=== PATIENT | female | born 2000 | race American Indian/Alaskan Native ===

== ENCOUNTER 2021-04-01 20:52 | Emergency (ER) | payer MEDICAID ==
[2021-04-01 23:32] VITALS: BP 113/67
--- NOTE | 2021-04-02 00:29 | Emergency Department Report ---
- General Chief complaint: Skin/Abscess/Foreign Body Stated complaint: ARMPITS BLEEDING/ITCHY/DRAINING Time Seen by Provider: 04/02/21 00:19 Source: patient Mode of arrival: Ambulatory Limitations: No Limitations - History of Present Illness Initial comments: Chief complaint: Rash in my arms HPI: This is a healthy 21-year-old female with history of eczema who presents with irritation and drainage under both arms for the past several days. Patient has itching and irritation. No previous rash in the area. MD complaint: rash -: Gradual, days(s) (Several days) Location: LUE, RUE Severity: moderate Quality: burning Consistency: constant Improves with: none Worsens with: none Context: none Associated symptoms: other (Drainage) - Related Data Previous Rx's Medication Instructions Recorded Last Taken Type Hydrocortisone [Hydrocortisone 1 applic TP BID 14 Days #1 04/02/21 Unknown Rx 2.5% OINT] oint...g. Sulfamethoxazole/Trimethoprim 1 each PO BID 7 Days #14 tablet 04/02/21 Unknown Rx [Bactrim DS TAB] cephALEXin [Keflex] 500 mg PO Q6HR 7 Days #28 capsule 04/02/21 Unknown Rx Allergies Allergy/AdvReac Type Severity Reaction Status Date / Time No Known Allergies Allergy Unverified 04/01/21 21:40 Abscess [facility] Chief Complaint: Skin/Abscess/Foreign Body Stated Complaint: ARMPITS BLEEDING/ITCHY/DRAINING Time Seen by Provider: 04/02/21 00:19 Home Medications: Previous Rx's Medication Instructions Recorded Last Taken Type Hydrocortisone [Hydrocortisone 1 applic TP BID 14 Days #1 04/02/21 Unknown Rx 2.5% OINT] oint...g. Sulfamethoxazole/Trimethoprim 1 each PO BID 7 Days #14 tablet 04/02/21 Unknown Rx [Bactrim DS TAB] cephALEXin [Keflex] 500 mg PO Q6HR 7 Days #28 capsule 04/02/21 Unknown Rx Allergies/Adverse Reactions: Allergies Allergy/AdvReac Type Severity Reaction Status Date / Time No Known Allergies Allergy Unverified 04/01/21 21:40 ED Review of Systems ROS: Stated complaint: ARMPITS BLEEDING/ITCHY/DRAINING Other details as noted in HPI ED Past Medical Hx - Past Medical History Previous Medical History?: Yes Hx Asthma: Yes Additional medical history: eczema - Surgical History Past Surgical History?: No - Social History Smoking Status: Current Every Day Smoker Substance Use Type: Alcohol, Marijuana - Medications Home Medications: Home Medications Medication Instructions Recorded Confirmed Last Taken Type Hydrocortisone [Hydrocortisone 1 applic TP BID 14 Days #1 04/02/21 Unknown Rx 2.5% OINT] oint...g. Sulfamethoxazole/Trimethoprim 1 each PO BID 7 Days #14 tablet 04/02/21 Unknown Rx [Bactrim DS TAB] cephALEXin [Keflex] 500 mg PO Q6HR 7 Days #28 capsule 04/02/21 Unknown Rx ED Physical Exam - General Limitations: No Limitations General appearance: alert, in no apparent distress - Head Head exam: Present: atraumatic - ENT ENT exam: Present: normal orophraynx - Neurological Exam Neurological exam: Present: alert, oriented X3 - Skin Skin exam: Present: other (Both axillary affected: Hyperpigmented edematous skin with pustules ulceration) ED Course Vital Signs 04/01/21 21:43 Temperature 98.6 F Pulse Rate 74 Respiratory 18 Rate Blood Pressure 113/67 O2 Sat by Pulse 98 Oximetry ED Medical Decision Making - Medical Decision Making Differential diagnosis: Hidradenitis suppurativa, allergic contact dermatitis, folliculitis: Prescribed hydrocortisone ointment, Bactrim Keflex. Referred to final installer inspector. Critical care attestation.: If time is entered above; I have spent that time in minutes in the direct care of this critically ill patient, excluding procedure time. ED Disposition Clinical Impression: Hidradenitis suppurativa, Allergic contact dermatitis Disposition: DC- TO HOME OR SELFCARE Is pt being admited?: No Does the pt Need Aspirin: No Condition: Stable Additional Instructions: Please see a final installer inspector at your earliest convenience. Prescriptions: Sulfamethoxazole/Trimethoprim [Bactrim DS TAB] 1 each PO BID 7 Days #14 tablet Hydrocortisone [Hydrocortisone 2.5% OINT] 1 applic TP BID 14 Days #1 oint...g. cephALEXin [Keflex] 500 mg PO Q6HR 7 Days #28 capsule Referrals: HARESH SANCHEZ MD [Staff Physician] - 3-5 Days
== END 2021-04-02 01:15 | disposition home or self-care (01) ==
LOC: ED 20:52
DX: L73.2 Hidradenitis suppurativa (principal); L23.9 Allergic contact dermatitis, unspecified cause; J45.909 Unspecified asthma, uncomplicated; F17.200 Nicotine dependence, unspecified, uncomplicated; F12.90 Cannabis use, unspecified, uncomplicated; Z79.899 Other long term (current) drug therapy
CPT/HCPCS: 99281

== ENCOUNTER 2021-04-20 19:30 | Emergency (ER) | payer MEDICAID ==
--- NOTE | 2021-04-20 21:51 | Emergency Department Report ---
<DWAINE BANEGASXIN Gardner - Last Filed: 04/21/21 02:09> ED Psych HPI - General Chief Complaint: Psych Stated Complaint: SUICIDAL THOUGHTS Time Seen by Provider: 04/20/21 21:31 Source: patient, family, EMS Mode of arrival: Ambulatory Limitations: No Limitations - History of Present Illness Initial Comments: Patient is a 21-year-old female who presents emergency room with complaints of depression and suicidal ideation. Patient states she has a plan. Patient states she had a plan to stab herself or hanging herself. Patient's mother is at bedside. Patient's mother at bedside because the patient has history of MR. Patient is not currently taking any psychiatric medications. Patient states that her suicidal ideations have been going on without a plan for 1 year but recently she has been having thoughts and coming up with plans of how to kill herself. Patient denies hallucinations. Patient denies anxiety. Patient com plains of depression. Patient's mother at bedside. Patient's mother states that her daughter posted on [employer], "when I kill myself tomorrow. Please do not let the fake people come to my . You all do not care about me now and should care about me then." Mother states that after she found this post that she confronted the patient and the patient had locked herself in the room and was crying. The patient then opened up her room door and told her mom that she was trying to hang herself because she did not want to live. Mother states the patient admitted to her that she wants to . Mother states that the patient admitted to her that she has attempted suicide multiple times but all the way that she has tried have not worked. Patient denies recent travel. Patient denies recent international travel. Patient denies exposure to the novel coronavirus. Patient denies sick contacts. Patient denies fever and chills. Patient denies cough. Patient denies diarrhea. Patient denies coming in contact with anybody with symptoms of the novel coronavirus. MD Complaint: suicidal ideation, feels depressed -: Sudden, year(s) Associated Psychiatric Symptoms: depression, suicidal ideation History of same: Yes Quality: constant Improves With: none Worsens With: none Associated Symptoms: denies other symptoms. denies: confusion, headache, shortness of breath, nausea, vomiting, syncope, insomnia If Self Harm: admits thoughts of, has plan, has acted on plan - Related Data Previous Rx's Medication Instructions Recorded Last Taken Type Hydrocortisone [Hydrocortisone 1 applic TP BID 14 Days #1 04/02/21 Unknown Rx 2.5% OINT] oint...g. cephALEXin [Keflex] 500 mg PO Q6HR 7 Days #28 capsule 04/02/21 Unknown Rx Sertraline [Zoloft] 25 mg PO QDAY #30 tab 04/21/21 Unknown Rx Sulfamethoxazole/Trimethoprim 1 each PO BID 7 Days #14 tablet 04/21/21 Unknown Rx [Bactrim DS TAB] Allergies Allergy/AdvReac Type Severity Reaction Status Date / Time No Known Allergies Allergy Unverified 04/01/21 21:40 ED Review of Systems Constitutional: denies: chills, fever Eyes: denies: eye pain, eye discharge, vision change ENT: denies: ear pain, throat pain Respiratory: denies: cough, shortness of breath, wheezing Cardiovascular: denies: chest pain, palpitations Endocrine: no symptoms reported Gastrointestinal: denies: abdominal pain, nausea, diarrhea Genitourinary: denies: urgency, dysuria, discharge Musculoskeletal: denies: back pain, joint swelling, arthralgia Skin: denies: rash, lesions Neurological: denies: headache, weakness, paresthesias Psychiatric: as per HPI, depression, suicidal thoughts. denies: anxiety, auditory hallucinations, visual hallucinations, homicidal thoughts Hematological/Lymphatic: denies: easy bleeding, easy bruising ED Past Medical Hx - Past Medical History Previous Medical History?: Yes Hx Asthma: Yes Additional medical history: eczema, Mental Retardation - Surgical History Past Surgical History?: No - Family History Family history: no significant - Social History Smoking Status: Never Smoker Substance Use Type: None - Medications Home Medications: Home Medications Medication Instructions Recorded Confirmed Last Taken Type Hydrocortisone [Hydrocortisone 1 applic TP BID 14 Days #1 04/02/21 Unknown Rx 2.5% OINT] oint...g. cephALEXin [Keflex] 500 mg PO Q6HR 7 Days #28 capsule 04/02/21 Unknown Rx Sertraline [Zoloft] 25 mg PO QDAY #30 tab 04/21/21 Unknown Rx Sulfamethoxazole/Trimethoprim 1 each PO BID 7 Days #14 tablet 04/21/21 Unknown Rx [Bactrim DS TAB] ED Physical Exam - General Limitations: Other General appearance: alert, in no apparent distress - Head Head exam: Present: atraumatic, normocephalic - Eye Eye exam: Present: normal appearance - ENT ENT exam: Present: mucous membranes moist - Neck Neck exam: Present: normal inspection - Respiratory Respiratory exam: Present: normal lung sounds bilaterally. Absent: respiratory distress - Cardiovascular Cardiovascular Exam: Present: regular rate, normal rhythm. Absent: systolic murmur, diastolic murmur, rubs, gallop - GI/Abdominal GI/Abdominal exam: Present: soft, normal bowel sounds - Extremities Exam Extremities exam: Present: normal inspection - Back Exam Back exam: Present: normal inspection - Neurological Exam Neurological exam: Present: alert, oriented X3 - Psychiatric Psychiatric exam: Present: depressed, flat affect, suicidal ideation - Skin Skin exam: Present: warm, dry, intact, normal color. Absent: rash ED Course - Reevaluation(s) Reevaluation #1: Initial evaluation done. Patient's mother at bedside the entire time. Patient placed on a 1013. Mental health evaluation ordered. 04/20/21 21:51 Reevaluation #2: Patient is medically cleared. Patient remained in the ER as an ER hold and on a 1013 until the patient is cleared by our psychiatry team. Patient's final disposition will come from our psychiatry team. 04/21/21 02:09 ED Medical Decision Making - Lab Data Result diagrams: 04/20/21 22:03 04/20/21 22:03 - Medical Decision Making Patient is a 21-year-old female presents emergency room with complaints of suicidal ideation and depression. Patient has had multiple attempts over the past few weeks. Patient was brought in by her mother because the patient told her mother tonight that she wanted to and that she already tried to hang herself. Patient history per mother and patient. Patient had labs done which were essentially unremarkable except for UTI. Patient is medically cleared. Patient's final disposition will come from our psychiatry team. Patient will remain in the ER as an ER hold and a 1013 until the patient is cleared by our psychiatry team. Patient will be given a prescription for Bactrim. - Differential Diagnosis Suicidal ideation, depression ED Disposition Clinical Impression: Suicidal ideations, Suicide attempt UTI (urinary tract infection) Qualifiers: Urinary tract infection type: acute cystitis Hematuria presence: with hematuria Qualified Code(s): N30.01 - Acute cystitis with hematuria Depression Qualifiers: Depression Type: unspecified Qualified Code(s): F32.9 - Major depressive disorder, single episode, unspecified Disposition: DC-01 TO HOME OR SELFCARE Is pt being admited?: No Does the pt Need Aspirin: No Condition: Stable Instructions: Urinary Tract Infection, Adult, [id number] Additional Instructions: OUTPATIENT MENTAL HEALTH RESOURCES [facility], [facility] Sarwat Santillan MD: [address] [place] [address] [place] [address] [facility]: [facility] [address] [place] [address] [place] [address] [phone] [facility]: [facility] Healthcare: [address] [facility] [address] [facility] [place] [address] [facility] [address] [facility]: Ervin Goodman MD: [address] [facility] [address] [facility] [address] [facility]: [address] [place], [place] [id number] [phone] [place] CRISIS AND ACCESS LINE: Prescriptions: Sulfamethoxazole/Trimethoprim [Bactrim DS TAB] 1 each PO BID 7 Days #14 tablet Sertraline [Zoloft] 25 mg PO QDAY #30 tab Referrals: PRIMARY CARE, [Primary Care Provider] - 2-3 Days Time of Disposition: 02:12 <AQUILINO RAMIREZ - Last Filed: 04/21/21 13:46> ED Review of Systems ROS: Stated complaint: SUICIDAL THOUGHTS Other details as noted in HPI ED Course Vital Signs 04/20/21 04/20/21 04/20/21 20:19 21:40 21:43 Temperature 98.3 F 98.3 F Pulse Rate 83 83 Respiratory 18 20 16 Rate Blood Pressure 119/72 Blood Pressure 119/72 [Right] O2 Sat by Pulse 99 99 99 Oximetry 04/21/21 04/21/21 02:53 09:23 Temperature 98.3 F 98.9 F Pulse Rate 85 65 Respiratory 18 18 Rate Blood Pressure Blood Pressure 101/68 110/42 [Right] O2 Sat by Pulse 100 97 Oximetry ED Medical Decision Making - Lab Data Result diagrams: 04/20/21 22:03 04/20/21 22:03 - Medical Decision Making Patient has been cleared by psychiatric team for discharge. I have arranged discharge disposition. Critical care attestation.: If time is entered above; I have spent that time in minutes in the direct care of this critically ill patient, excluding procedure time.
[2021-04-20 22:31] LABS: Basophils % (Auto) 0.6 % (0.0-1.8); Eosinophils # (Auto) 0.1 K/mm3 (0.0-0.4); Eosinophils % (Auto) 2.1 % (0.0-4.3); Hematocrit 39.9 % (30.3-42.9); Hemoglobin 13.3 gm/dl (10.1-14.3); Lymphocytes # (Auto) 1.9 K/mm3 (1.2-5.4); Lymphocytes % (Auto) 32.2 % (13.4-35.0); Mean Corpuscular HGB Conc 33 % (30-34); Mean Corpuscular Volume 91 fl (79-97); Monocytes # (Auto) 0.4 K/mm3 (0.0-0.8); Monocytes % (Auto) 6.8 % (0.0-7.3); Platelet Count 166 K/mm3 (140-440); Red Blood Count 4.39 M/mm3 (3.65-5.03); Red Cell Distribution Width 13.9 % (13.2-15.2)
[2021-04-20 22:39] LABS: BUN/Creatinine Ratio 13; Blood Urea Nitrogen 10 mg/dL (7-17); Calcium 10.6 mg/dL (8.4-10.2); Hemolysis Index 23
[2021-04-20 22:44] LABS: Bilirubin,Urine NEG (Negative); Blood,Urine LG (Negative); Color,Urine Yellow (Yellow); Mucus,Urine 3+ /HPF; RBC,Urine > 182.0 /HPF (0.0-6.0)
[2021-04-20 22:51] LABS: Amphetamine Screen,Urine Negative; Benzodiazepines Screen,Urine Negative; Cannabinoid Screen,Urine Negative; Cocaine Screen,Urine Negative; Methadone Screen,Urine Negative; Opiate Screen,Urine Negative
[2021-04-21 09:25] VITALS: BP 110/42
--- NOTE | 2021-04-21 10:37 | Consultation ---
History of Present Illness - Reason for Consult Consult date: 04/21/21 Reason for consult: SI - History of Present Psychiatric Illness Per ER Note: Patient is a 21-year-old female who presents emergency room with complaints of depression and suicidal ideation. Patient states she has a plan. Patient states she had a plan to stab herself or hanging herself. Patient's mother is at bedside. Patient's mother at bedside because the patient has history of MR. Patient is not currently taking any psychiatric medications. Patient states that her suicidal ideations have been going on without a plan for 1 year but recently she has been having thoughts and coming up with plans of how to kill herself. Patient denies hallucinations. Patient denies anxiety. Patient complains of depression. Patient's mother at bedside. Patient's mother states that her daughter posted on [employer], "when I kill myself tomorrow. Please do not let the fake people come to my . You all do not care about me now and should care about me then." Mother states that after she found this post that she confronted the patient and the patient had locked herself in the room and was crying. The patient then opened up her room door and told her mom that she was trying to hang herself because she did not want to live. Mother states the patient admitted to her that she wants to . Mother states that the patient admitted to her that she has attempted suicide multiple times but all the way that she has tried have not worked. 21y/o Susan Word was evaluated today. The patient presented to the ER for posting something on [employer] saying she wanted to kill herself. During my evaluation the patient is calm, and cooperative. She is polite. She talks to me about her triggers. The patient states her family makes her feel this way when she's around them because "they transmission superintendent too much." The patient states "If I have company they don't approve of them and this makes me feel like this. The don't let my company come around." The patient denies SI/HI. She says "I only said that because I was upset. It's my family." She also says her dad is trying to come back in her life and she's not feeling that. She says he is also one of her triggers. She denies ever seeing a psychiatrist. The patient says "this is the first time she's been in a situation like this." She says "I've never been in a hospital for nothing like this." She denies hallucinations of any kind. The patient also denies any fear of endangerment for herself or anybody else. The patient also discusses her plans to go to [employer] to do nails. I spoke to mom and discussed the patient's progress and discharge plan with her. Mom says the patient is upset because she won't allow this certain boy to be in her life. Mom says she is a code clerk and doesn't feel this boy is right for Susan. She says the patient is also upset that her father wants to be in her life. She says Garry gets upset when things don't go her way. PAST PSYCHIATRIC HISTORY: Diagnoses: Suicide attempts or Self-harm behavior: Denies Prior psychiatric hospitalizations: Denies Substance Abuse history: [facility] Previous psychiatric medications tried: Olanzapine Outpatient treatment: Yes PAST MEDICAL HISTORY: None reported or document Family Psychiatric History: None reported or documented SOCIAL HISTORY Marital Status: Single Living Arrangements: with mom Employment Status: Unemployed Access to guns/weapons: denies Education: high school diploma History of Abuse: denies Legal History: denies REVIEW OF SYSTEMS Constitutional: Negative for weight loss ENT: Negative for stridor Respiratory: Negative for cough or hemoptysis All other systems reviewed and are negative MENTAL STATUS EXAMINATION General Appearance and Behavior: Age appropriate, wearing appropriate clothes, cooperative polite with questioning, good eye contact, cooperative Cooperation: cooperative Psychomotor Behavior: Psychomotor normal Mood: "better" Affect and affective range: congruent with stated mood Thought Process: goal directed Thought Content: optimism Speech: Normal volume, Regular rate and rhythm Suicidal Ideation: Denies Homicidal Ideation: Denies hallucination: Denies Delusions: None elicited Impulse Control: Limited Insight and Judgment: Limited Memory: Intact Attention: Limited Orientation: Alert and oriented Diagnoses: Major Depressive Disorder Treatment Plan d/c 1013 Zoloft 25mg po daily Sitter: Per primary Medical: Per primary Disposition: Do not recommend acute psychiatric inpatient treatment Party Planner to give appropriate outpatient resources Party Planner to also further discuss and document safety plan The patient to follow up with outpatient psych in 7 to 14 days upon discharge Will sign off. Thanks Case staffed with Dr. Bird. Medications and Allergies Allergies Allergy/AdvReac Type Severity Reaction Status Date / Time No Known Allergies Allergy Unverified 04/01/21 21:40 Home Medications Medication Instructions Recorded Confirmed Last Taken Type Hydrocortisone [Hydrocortisone 1 applic TP BID 14 Days #1 04/02/21 Unknown Rx 2.5% OINT] oint...g. cephALEXin [Keflex] 500 mg PO Q6HR 7 Days #28 capsule 04/02/21 Unknown Rx Sertraline [Zoloft] 25 mg PO QDAY #30 tab 04/21/21 Unknown Rx Sulfamethoxazole/Trimethoprim 1 each PO BID 7 Days #14 tablet 04/21/21 Unknown Rx [Bactrim DS TAB] Mental Status Exam - Vital signs Last Vital Signs Temp 98.9 F 04/21/21 09:23 Pulse 65 04/21/21 09:23 Resp 18 04/21/21 09:23 BP 110/42 04/21/21 09:23 Pulse Ox 97 04/21/21 09:23 Results Result Diagrams: 04/20/21 22:03 04/20/21 22:03 Abnormal lab results 04/20/21 04/20/21 04/20/21 Range/Units 21:53 22:03 22:03 Calcium (8.4-10.2) mg/dL Urine WBC (Auto) 10.0 H (0.0-6.0) /HPF Salicylates < 0.3 L (2.8-20.0) mg/dL Acetaminophen 5.0 L (10.0-30.0) ug/mL 04/20/21 Range/Units 22:03 Calcium 10.6 H (8.4-10.2) mg/dL Urine WBC (Auto) (0.0-6.0) /HPF Salicylates (2.8-20.0) mg/dL Acetaminophen (10.0-30.0) ug/mL All other labs normal.
== END 2021-04-21 12:23 | disposition home or self-care (01) ==
LOC: ED 19:30 → EEVIPCON 19:30 → ED 04-21 12:23
DX: R45.851 Suicidal ideations (principal); Z20.822 Contact with and (suspected) exposure to COVID-19; N39.0 Urinary tract infection, site not specified; F32.9 Major depressive disorder, single episode, unspecified; J45.909 Unspecified asthma, uncomplicated; Z79.899 Other long term (current) drug therapy
CPT/HCPCS: 36415; 80048; 80307; 81001; 84703; 85025; 87086; 99284; U0003; 80320; G0480